=== PATIENT | female | born 1995 | race Caucasian/White ===

== ENCOUNTER → 2018-01-10 16:38 | Outpatient (CLI) | payer OTHER, SELFPAY ==
[2018-01-10 17:43] LABS: Hematocrit 35.5 % (37-47); Hemoglobin 11.9 g/dl (12.0-15.0); Mean Corp Hgb Conc 33.5 g/gl (32-36); Mean Corpuscular Volume 83.5 fL (81-99); Mean Platelet Vol. 11.1 fl (6.2-12.0); Platelet Count 218 K/mm3 (150-450); RBC Distribution Width CV 12.9 % (11.6-14.6); RBC Distribution Width SD 38.5 fl (35.1-43.9); Red Blood Count 4.25 M/mm3 (4.2-5.4); White Blood Count 9.4 K/mm3 (4.4-11.0)
[2018-01-10 17:55] LABS: Scan Indicated on CBC? Y/N NO
[2018-01-10 18:07] LABS: BUN 9 mg/dL (7-18); Creatinine, Serum 0.56 mg/dL (0.55-1.02); Glucose 111 mg/dL (74-106)
[2018-01-10 18:08] LABS: ALB/GLOB Ratio 0.7 RATIO (0.9-2.4); AST(SGOT) 13 U/L (15-37); Alanine Aminotransfer ALT/SGPT 15 U/L (13-56); Albumin, Serum 2.7 g/dL (3.2-5.0); Alkaline Phosphatase 80 U/L (45-117); Anion Gap 10 (5-15); BUN/Creat Ratio 16.1 RATIO (10-20); Calcium,Total 8.2 mg/dL (8.5-10.1); Chloride 106 mmol/L (98-107); EST Glomerular Filtration Rate 145 mL/min (>60); Est Glom Filt Rate - Afr Amer 176 mL/min (>60); Globulin 3.7 g/dL (2.2-4.2); Potassium 3.3 mmol/L (3.5-5.1); Protein, Total 6.4 g/dL (6.4-8.2); Sodium Level 138 mmol/L (136-145); Uric Acid 3.9 mg/dL (2.6-6.0)
== END ==
PROVIDERS: Visit Provider Obstetrics & Gynecology
DX: O13.3 Gestational [pregnancy-induced] hypertension without significant proteinuria, third trimester (principal); Z3A.00 Weeks of gestation of pregnancy not specified
CPT/HCPCS: 36415; 80053; 82570; 84156; 84550; 85027

== ENCOUNTER → 2018-01-16 17:10 | Outpatient (CLI) | payer OTHER, SELFPAY ==
[2018-01-16 17:51] LABS: Hematocrit 34.8 % (37-47); Hemoglobin 11.7 g/dl (12.0-15.0); Mean Corp Hgb Conc 33.6 g/gl (32-36); Mean Corpuscular Hgb 27.9 pg (27.0-32.0); Mean Corpuscular Volume 83.1 fL (81-99); Mean Platelet Vol. 10.7 fl (6.2-12.0); Platelet Count 248 K/mm3 (150-450); RBC Distribution Width CV 12.6 % (11.6-14.6); RBC Distribution Width SD 37.7 fl (35.1-43.9); Red Blood Count 4.19 M/mm3 (4.2-5.4); White Blood Count 12.9 K/mm3 (4.4-11.0)
[2018-01-16 18:14] LABS: Scan Indicated on CBC? Y/N NO
[2018-01-16 18:44] LABS: ALB/GLOB Ratio 0.7 RATIO (0.9-2.4); AST(SGOT) 17 U/L (15-37); Alanine Aminotransfer ALT/SGPT 18 U/L (13-56); Albumin, Serum 2.7 g/dL (3.2-5.0); Alkaline Phosphatase 90 U/L (45-117); Anion Gap 9 (5-15); BUN 12 mg/dL (7-18); BUN/Creat Ratio 22.1 RATIO (10-20); Calcium,Total 8.6 mg/dL (8.5-10.1); Chloride 104 mmol/L (98-107); Creatinine, Serum 0.54 mg/dL (0.55-1.02); EST Glomerular Filtration Rate 150 mL/min (>60); Est Glom Filt Rate - Afr Amer 181 mL/min (>60); Globulin 3.7 g/dL (2.2-4.2); Glucose 99 mg/dL (74-106); Potassium 3.4 mmol/L (3.5-5.1); Protein, Total 6.4 g/dL (6.4-8.2); Sodium Level 136 mmol/L (136-145); Uric Acid 3.4 mg/dL (2.6-6.0)
== END ==
PROVIDERS: Family Provider Family Medicine; PCP Family Medicine; Visit Provider Obstetrics & Gynecology
DX: O16.3 Unspecified maternal hypertension, third trimester (principal); Z3A.00 Weeks of gestation of pregnancy not specified
CPT/HCPCS: 36415; 80053; 84550; 85027

== ENCOUNTER → 2018-01-17 19:50 | Outpatient (CLI) | payer OTHER, SELFPAY ==
[2018-01-17 21:24] LABS: 24 Hour Urine Protein 197.6 mg/24HR (<150 MG/24HR); 24HR. UA Prot. Total Volume 1900 mL; Urine Protein (24 Hour) 10.4 mg/dL (<11.9)
== END ==
PROVIDERS: Family Provider Family Medicine; PCP Family Medicine; Visit Provider Obstetrics & Gynecology
DX: O16.3 Unspecified maternal hypertension, third trimester (principal); Z3A.00 Weeks of gestation of pregnancy not specified
CPT/HCPCS: 84156

== ENCOUNTER → 2018-01-24 17:59 | Outpatient (CLI) | payer OTHER, SELFPAY ==
[2018-01-24 20:40] LABS: Group B Strep DNA By PCR POSITIVE (Negative); Probe Check PASS
== END ==
PROVIDERS: Family Provider Family Medicine; PCP Family Medicine; Visit Provider Obstetrics & Gynecology
DX: Z36.85 Encounter for antenatal screening for Streptococcus B (principal)
CPT/HCPCS: 87653

== ENCOUNTER 2018-01-28 16:05 | Outpatient (CLI) | payer OTHER, SELFPAY ==
[2018-01-28 16:28] VITALS: BMI 26.2
[2018-01-28 18:37] LABS: Bacteria 0 SEEN /hpf (None Seen); Mucous, Urine 0 SEEN /hpf (<or=2+)
[2018-01-28 18:41] LABS: Color, Urine Yellow (Yellow); Glucose, Dipstick Normal (Normal); Ketone-Dipstick Negative (Negative); Leukocyte Esterase-Dipstick 100 /ul (Negative); Nitrite-Dipstick Negative (Negative); Occult Blood-Urine 10 /ul (Negative); Protein-Dipstick Negative (Negative); Urine Bilirubin Dipstick Negative (Negative); Urine Clarity Clear (Clear); Urine Urobilinogen Normal (Normal)
[2018-01-28 18:53] LABS: Red Blood Cells-Urine 0-5 SEEN /hpf (0-5); White Blood Cells 0-5 SEEN /hpf (0-5)
[2018-01-28 18:54] LABS: Squamous Epithelial Cells - UA 0-5 SEEN /hpf (5-10)
--- NOTE | 2018-01-29 09:01 | OB.TRI.NOTE ---
History of Present Illness Date of Service: 01/28/18 Was patient seen by the physician?: No Reason For Visit: RULE OUT LABOR Date of Service: 01/28/18 Final GIACOMO Source: US <20 weeks Gestational age: 35+ weeks History of Present Illness: 35+ week intrauterine presents with contractions and low back pain. She is also complaining of discomfort after she voids. Home Medications Medication Instructions Recorded Vits [Prenatabs FA ] 1 tablet PO DAILY 07/19/15 Allergies No Known Allergies Allergy (Verified 07/19/15 08:36) Physical Exam Cervix Dilation (cm): 3 Station: -2 Effacement (%): 50 - unchanged vs office NST - FHR Rate Baby A NST Reactive:: Yes Impression/Plan 35+ week intrauterine with transient contractions. Urinalysis was negative. Reactive nonstress test. Cervix did not change after monitoring on labor and delivery. Patient was released to home and instructed to call if contractions became more regular or more progressive. Patient called after being discharged home still complaining of discomfort after voiding; prescriptions for Macrobid 100 mg twice daily for 7 days and Pyridium 200 mg 3 times daily for 3 days was sent to [facility] in [place]. She was instructed to call with increasing contractions or evidence of labor.
--- NOTE | 2018-01-29 09:06 | OB.TRI.HP_ITS ---
History of Present Illness Date of Service: 01/28/18 Was patient seen by the physician?: No Reason For Visit: RULE OUT LABOR Date of Service: 01/28/18 Final GIACOMO Source: US <20 weeks Gestational age: 35+ weeks History of Present Illness: 35+ week intrauterine presents with contractions and low back pain. She is also complaining of discomfort after she voids. Home Medications Medication Instructions Recorded Vits [Prenatabs FA ] 1 tablet PO DAILY 07/19/15 Allergies No Known Allergies Allergy (Verified 07/19/15 08:36) Physical Exam Cervix Dilation (cm): 3 Station: -2 Effacement (%): 50 - unchanged vs office NST - FHR Rate Baby A NST Reactive:: Yes Impression/Plan 35+ week intrauterine with transient contractions. Urinalysis was negative. Reactive nonstress test. Cervix did not change after monitoring on labor and delivery. Patient was released to home and instructed to call if contractions became more regular or more progressive. Patient called after being discharged home still complaining of discomfort after voiding ; prescriptions for Macrobid 100 mg twice daily for 7 days and Pyridium 200 mg 3 times daily for 3 days was sent to [facility] in [place]. She was instructed to call with increasing contractions or evidence of labor.
== END 2018-01-28 18:20 | disposition home or self-care (01) ==
LOC: WPOUT 16:16 → WP 16:17
PROVIDERS: Family Provider Family Medicine; PCP Family Medicine; Visit Provider Obstetrics & Gynecology
DX: O26.893 Other specified pregnancy related conditions, third trimester (principal); N85.8 Other specified noninflammatory disorders of uterus; M54.5 Low back pain; Z3A.35 35 weeks gestation of pregnancy
CPT/HCPCS: 59025; 59050; 81001; 99218; G0378

== ENCOUNTER 2018-02-01 18:56 | Inpatient (IN) | payer OTHER, SELFPAY ==
[2018-02-01 19:05] VITALS: BMI 25.7
[2018-02-01] MEDS: Lactated Ringers 1,000 ML 50 ML IV ×2 (20:03→20:57)
[2018-02-01] MEDS: Betamethasone/Betamethasone 30 MG/5 ML Vial 12 MG IM (20:05)
[2018-02-01 20:31] LABS: Hematocrit 38.4 % (37-47); Hemoglobin 12.5 g/dl (12.0-15.0); Mean Corp Hgb Conc 32.6 g/gl (32-36); Mean Corpuscular Volume 82.9 fL (81-99); Mean Platelet Vol. 10.3 fl (6.2-12.0); Platelet Count 229 K/mm3 (150-450); RBC Distribution Width CV 13.2 % (11.6-14.6); RBC Distribution Width SD 39.5 fl (35.1-43.9); Red Blood Count 4.63 M/mm3 (4.2-5.4); White Blood Count 9.9 K/mm3 (4.4-11.0)
[2018-02-01 20:32] LABS: Scan Indicated on CBC? Y/N NO
[2018-02-01 20:36] LABS: International Normalized Ratio 0.9; Prothrombin Time (Protime)PT. 12.4 SECONDS (11.7-14.9)
[2018-02-01 20:37] LABS: Partial Thromboplast Time 30.9 Seconds (24.1-36.2)
[2018-02-01 20:44] LABS: AST(SGOT) 13 U/L (15-37); Alanine Aminotransfer ALT/SGPT 14 U/L (13-56); Creatinine, Serum 0.48 mg/dL (0.55-1.02); EST Glomerular Filtration Rate 170 mL/min (>60); Est Glom Filt Rate - Afr Amer 206 mL/min (>60); Estimated Creatinine Clearance 146.63 ml/min; Uric Acid 4.3 mg/dL (2.6-6.0)
[2018-02-01 21:37] LABS: Protein, Urine (Random) 20.2 mg/dL (<11.9); Protein:Creat Ratio 285 mg/g CRE (0-200)
--- NOTE | 2018-02-02 02:32 | PCM.PN.OB ---
Subjective: Relatively comfortable with epidural. Objective: Afeb BPs 140/80-90s Cat 1 FHR tracing - Physical Exam General: Alert, Oriented x3, Cooperative, No apparent distress Comment: Cervix rim/0station Weight: 140 lb 6.951 oz Body Mass Index (BMI) 25.7 Intake and Output for Last 24 Hours 01/31/18 02/01/18 02/02/18 23:59 23:59 23:59 Intake Total 1165 / 1165 640 / 640 Output Total 400 / 400 Balance 1165 / 1165 240 / 240 Laboratory Tests Past 24 Hrs 02/01/18 02/01/18 02/01/18 19:30 20:00 20:00 WBC 9.9 RBC 4.63 Hgb 12.5 Hct 38.4 MCV 82.9 MCH 27.0 MCHC 32.6 RDW 13.2 RDW Differential 39.5 Plt Count 229 MPV 10.3 PT INR APTT Creatinine Estim Creat Clear Calc Est GFR (MDRD) Af Amer Est GFR (MDRD) Non-Af Uric Acid AST ALT U Random Total Protein 20.2 H Urine Creatinine 70.80 Protein/Creatinin Ratio 285 H Blood Type A POSITIVE Antibody Screen TNP 02/01/18 02/01/18 02/01/18 20:00 20:00 20:00 WBC RBC Hgb Hct MCV MCH MCHC RDW RDW Differential Plt Count MPV PT 12.4 INR 0.9 APTT 30.9 Creatinine 0.48 L Estim Creat Clear Calc 146.63 Est GFR (MDRD) Af Amer 206 Est GFR (MDRD) Non-Af 170 Uric Acid 4.3 AST 13 L ALT 14 U Random Total Protein Urine Creatinine Protein/Creatinin Ratio Blood Type Antibody Screen NEGATIVE Assessment/Plan SROM with clear fluid. Progressing in labor expect FD soon.
--- NOTE | 2018-02-02 02:36 | DCINST_ITS ---
Discharge Diet: No Restrictions Discharge Activity: Return to Normal Activity, No Restrictions, May Drive, May Shower Return to work on:: 04/03/18 May resume sexual activity in: 4-6 weeks Call your doctor if your incision/area has: Sudden Increased Bleeding, Increased Pain/ Swelling, Increased Redness, Foul Smelling Discharge, Swelling at the incision site Call your doctor if you observe: Fever of 101 or Higher, Inability to urinate, Inability to have a bowel movement, Using more than one pad per hour, Shortness of breath, Chest pain, Calf discomfort, Uncontrolled pain Cleanse incision/area with: Soap & Water Additional Instructions: If you experience any of the following, contact your healthcare provider. * Bleeding that soaks a pad every hour for 2 hours * Fever 100.4 or higher * Unrelieved incision or abdominal pain * Swelling, redness, discharge or bleeding from your incision or episiotomy site * Your incision begins to separate * Problems urinating (including inability to urinate or burning while urinating) . * Visual changes * Severe headache * Flu-like symptoms * Pain or redness in one of both of your breasts * Pain, warmth, tenderness or swelling in your legs, especially the calf area * Frequent nausea and vomiting * Symptoms of depression or anxiety If you experience any of the following, call 911 or go to the nearest Emergency Room. * Chest pain * Problems breathing * Seizure activity * Partial or complete paralysis of a body part, slurred speech, weakness or drooping of the face, or a sudden inability to walk or hold your balance Allergies/Adverse Reactions: Allergies No Known Allergies Allergy (Verified 07/19/15 08:36) Medications to take at Discharge Vits [Prenatabs FA ] 1 tablet PO DAILY 07/19/15 Nitrofurantoin Monohyd/M-Cryst [Macrobid 100 mg Capsule] 100 mg PO BID 02/01/18 Ibuprofen [Motrin] 800 mg PO TID PRN PRN #30 tab 02/02/18 The following prescriptions were given: Ibuprofen [Motrin] 800 mg PO TID PRN PRN #30 tab PRN Reason: pain or cramping Please Follow Up With: Qiana Nicholas MD When: 6 weeks Primary Care Physician: Adriel Perry DO [Primary Care Provider] - Proposed Discharge Date: 02/04/18
[2018-02-02] MEDS: Oxytocin 30 units/NS 500 ml 30 UNITS/500 ML IV.SOLN 334 UNITS IV (02:54)
--- NOTE | 2018-02-02 03:02 | PCM.OB.VAG ---
- Problem List (1) labor Status: Acute Qualifiers: labor trimester: third trimester labor delivery status: with delivery in third trimester Fetus number: single or unspecified fetus Qualified Code(s): O60.14X0 - labor third trimester with delivery third trimester, not applicable or unspecified Vaginal Delivery Maternal Presentation: Active Labor Presents at 36w2d ega in advanced labor Amniotic Membrane Rupture Type: Spontaneous Rupture of Membrane time: 0130 Amniotic Fluid Description: Clear Final GIACOMO: 02/28/18 Final GIACOMO Source: US <20 weeks Gestational age: 36 Weeks and 2 Days Date of Procedure: 02/02/18 Pre-Operative Diagnosis: labor Post-Operative Diagnosis: same Surgery/ Procedure Performed: Spontaneous Vaginal Delivery Anesthesiologist: Juan José Maldonado Type of Anesthesia: Epidural Description of Procedure: Presented at 6 cm dilated with regular painful contractions. Celestone given due to prematurity. Ampicillin started for GBS prophylaxis. She progressed to FD then pushed for 3 minutes to deliver a live male without complication. There was a loose cord around the neck x 2. Delayed cord clamping was employed. There was an active cry shortly after delivery. Apgars of 8/9. The placenta was delivered spontaneously intact with a centrally located 3VC. The placenta was subjectively small. The uterus contracted well. The vagina, cervix and perineum were intact. Presentation: Vertex Placental Delivery Description: Spontaneous Placenta Disposition: [facility] Percentage of Placenta Abruption: 0 Cord Vessel Description: 3 Vessels Nuchal Cord Compression: With compression Cord Entanglement: None Drain: Artis to straight drain Estimated Blood Loss: 200cc A gender: Male (1 minute): 8 (5 minute): 9 Episiotomy Description: None Laceration: None Medications given after delivery: IV Pitocin Complications: None
[2018-02-02] MEDS: Oxytocin 30 units/NS 500 ml 30 UNITS/500 ML IV.SOLN 167 UNITS IV (03:24)
[2018-02-02 04:50] VITALS: BP 138/75; PULSE 95; RESP 18; TEMP 37.3; O2SAT 96
--- NOTE | 2018-02-02 07:47 | PCM.PN.BLA ---
Progress Note s/p at 36 3/7wga h/o gHTN doing well. No complaints. No sx of preeclampsia. She is nursing. No issues since delivery. Continue routine care.
--- NOTE | 2018-02-02 07:53 | NURSING ---
trimble catheter dc'd at this time
[2018-02-02 10:00] VITALS: BP 131/84; PULSE 89; RESP 18; TEMP 36.4; O2SAT 96
[2018-02-02] MEDS: Senna/Docusate Sodium 1 Tablet PO (10:15)
[2018-02-02] MEDS: Nitrofurantoin Macrocrystals 100 MG Capsule PO ×2 (10:15→22:15)
[2018-02-02] MEDS: Prenatal Vits Tablet 1 TABLET PO (10:16)
[2018-02-02 13:00] VITALS: BP 126/70; PULSE 100; RESP 20; TEMP 36.4; O2SAT 98
[2018-02-02 17:55] VITALS: BP 138/69; PULSE 93; RESP 18; TEMP 37; O2SAT 96
[2018-02-02 20:15] VITALS: BP 131/83; PULSE 84; RESP 16; TEMP 36.8; O2SAT 95
[2018-02-03 01:02] VITALS: BP 140/79; PULSE 89; RESP 16; TEMP 36.6
[2018-02-03 04:00] VITALS: BP 115/69; PULSE 74; RESP 20; TEMP 36.6; O2SAT 95
[2018-02-03 05:38] LABS: Hemoglobin 11.6 g/dl (12.0-15.0); Mean Corp Hgb Conc 33.1 g/gl (32-36); Mean Corpuscular Volume 84.3 fL (81-99); Mean Platelet Vol. 10.4 fl (6.2-12.0); Platelet Count 219 K/mm3 (150-450); RBC Distribution Width CV 13.3 % (11.6-14.6); RBC Distribution Width SD 39.8 fl (35.1-43.9); Red Blood Count 4.15 M/mm3 (4.2-5.4); White Blood Count 13.5 K/mm3 (4.4-11.0)
[2018-02-03 05:46] LABS: Scan Indicated on CBC? Y/N NO
[2018-02-03 08:00] VITALS: BP 138/94; PULSE 83; RESP 16; TEMP 36.2; O2SAT 95
--- NOTE | 2018-02-03 08:39 | PCM.PN.OB ---
Patient Problems: Active and Suspected Problems labor (Acute) Subjective: No issues overnight. Denies heavy lochia, headache, vision changes or pain. is nursing well. Objective: avss - Physical Exam General: Alert, Oriented x3, Cooperative, No apparent distress HEENT: Atraumatic, Normocephalic Lungs: Normal air movement Cardiovascular: Regular rate, Regular Rhythm Abdomen: Soft, Non Tender, Non-Distended, - - fundus firm and nontender at 4 FW under umbilicus Extremities: No edema, No Calf Tenderness Neurological: Neuro grossly intact Psych/Mental Status: Normal Affect, Appropriate Vital Signs Temp Pulse Resp BP Pulse Ox 97.2 F L 83 16 138/94 H 95 02/03/18 08:00 02/03/18 08:00 02/03/18 08:00 02/03/18 08:00 02/03/18 08:00 Oxygen Delivery Method Room Air Weight: 63.7 kg Body Mass Index (BMI) 25.7 Intake and Output for Last 24 Hours 02/01/18 02/02/18 02/03/18 23:59 23:59 23:59 Intake Total 1165 / 1165 2055 / 2055 Output Total 2900 / 2900 Balance 1165 / 1165 -845 / -845 Laboratory Tests Past 24 Hrs 02/03/18 05:30 WBC 13.5 H RBC 4.15 L Hgb 11.6 L Hct 35.0 L MCV 84.3 MCH 28.0 MCHC 33.1 RDW 13.3 RDW Differential 39.8 Plt Count 219 MPV 10.4 Assessment/Plan Active and Suspected Problems labor (Acute) 22yo PPD#2 s/p doing well. -Infant bilirubin levels pending - -Will plan for d/c later today
[2018-02-03] MEDS: Prenatal Vits Tablet 1 TABLET PO (09:13)
[2018-02-03] MEDS: Nitrofurantoin Macrocrystals 100 MG Capsule PO ×2 (09:13→22:00)
[2018-02-03 14:30] VITALS: BP 134/84; PULSE 87; RESP 18; TEMP 36.4; O2SAT 95
[2018-02-03 19:45] VITALS: BP 124/73; PULSE 88; RESP 18; TEMP 36.8
[2018-02-04 02:00] VITALS: BP 122/81; PULSE 88; RESP 16; TEMP 36.7
[2018-02-04 08:00] VITALS: BP 136/91; PULSE 70; RESP 16; TEMP 36.7; O2SAT 99
--- NOTE | 2018-02-04 09:58 | PCM.PN.OB ---
Patient Problems: Active and Suspected Problems labor (Acute) Subjective: No issues overnight. She feels well. Objective: AVSS - Physical Exam General: Alert, Oriented x3, Cooperative HEENT: Atraumatic, Normocephalic Lungs: Normal air movement Cardiovascular: Regular rate, Regular Rhythm, Normal S1, Normal S2 Abdomen: Soft, Non Tender, Non-Distended, - - Fundus firm and nontender Extremities: No edema, No Calf Tenderness Neurological: Neuro grossly intact Psych/Mental Status: Normal Affect, Appropriate, Alert and oriented to time, place, person, mood and affect Vital Signs Temp Pulse Resp BP Pulse Ox 98.1 F 70 16 136/91 H 99 02/04/18 08:00 02/04/18 08:00 02/04/18 08:00 02/04/18 08:00 02/04/18 08:00 Oxygen Delivery Method Room Air Weight: 63.7 kg Body Mass Index (BMI) 25.7 Intake and Output for Last 24 Hours 02/02/18 02/03/18 02/04/18 23:59 23:59 23:59 Intake Total 2054 Output Total 2900 / 2900 Balance -845 / -845 Assessment/Plan Active and Suspected Problems labor (Acute) 22yo PPD#2 s/p doing well. -A pos, Rub imm -Infant bilirubin levels pending - -Will plan for d/c later today
[2018-02-04] MEDS: Prenatal Vits Tablet 1 TABLET PO (10:11)
[2018-02-04] MEDS: Nitrofurantoin Macrocrystals 100 MG Capsule PO (10:11)
[2018-02-04 15:00] VITALS: BP 121/82; PULSE 69; RESP 16; TEMP 36.7; O2SAT 100
--- NOTE | 2018-02-04 15:22 | PCM.DC.SUM ---
Discharge Date and Diagnosis - Problem List Patient Problems: Active and Suspected Problems labor (Acute) Date of Admission: 02/02/18 Date of Discharge: 02/04/18 - Primary Discharge Diagnosis Active and Suspected Problems labor (Acute) Hospital Course and Treatment Consultations 02/01/18 19:03 Consult: Anesthesia Routine Comment: Reason For Exam: LABOR Operations: None Procedures: None Summary of Care Provided: The patient is a 22 year old F 2 para 1001 admitted at 36 2/7wga in active labor. She had uncomplicated vaginal delivery. Her course was unremarkable and she was discharged to home on day #2. Discharge Diet: No Restrictions Discharge Activity: Return to Normal Activity, No Restrictions, May Drive, May Shower Return to work on:: 04/03/18 May resume sexual activity in: 4-6 weeks Call your doctor if your incision/area has: Sudden Increased Bleeding, Increased Pain/ Swelling, Increased Redness, Foul Smelling Discharge, Swelling at the incision site Call your doctor if you observe: Fever of 101 or Higher, Inability to urinate, Inability to have a bowel movement, Using more than one pad per hour, Shortness of breath, Chest pain, Calf discomfort, Uncontrolled pain Cleanse incision/area with: Soap & Water Home Medications: Medications to take at Discharge Vits [Prenatabs FA ] 1 tablet PO DAILY 07/19/15 Nitrofurantoin Monohyd/M-Cryst [Macrobid 100 mg Capsule] 100 mg PO BID 02/01/18 Ibuprofen [Motrin] 800 mg PO TID PRN PRN #30 tab 02/02/18 Following Prescrptions Were Given to Patient: Ibuprofen [Motrin] 800 mg PO TID PRN PRN #30 tab PRN Reason: pain or cramping Primary Care Physician: Adriel Perry DO [Primary Care Provider] - Please Follow Up With: Qiana Nicholas MD Meaningful Use Info Meaningful Use Diagnoses (Choose all that apply): None applicable
== END 2018-02-04 15:14 | disposition home or self-care (01) | DRG 774 ==
LOC: WPOUT 18:56
PROVIDERS: Admitting Provider Obstetrics & Gynecology; Family Provider Family Medicine; PCP Family Medicine; Visit Provider Obstetrics & Gynecology
DX: O60.14X0 Preterm labor third trimester with preterm delivery third trimester, not applicable or unspecified (principal); O69.81X0 Labor and delivery complicated by cord around neck, without compression, not applicable or unspecified; O98.82 Other maternal infectious and parasitic diseases complicating childbirth; B95.1 Streptococcus, group B, as the cause of diseases classified elsewhere; Z37.0 Single live birth; Z3A.36 36 weeks gestation of pregnancy
CPT/HCPCS: 59025; 59050; 82565; 82570; 84156; 84450; 84460; 84550; 85027; 85610; 85730; 86850; 86900; 99218; J7120; G0378; J0290; J0702

== ENCOUNTER → 2019-04-12 14:56 | Outpatient (CLI) | payer BC, SELFPAY ==
[2019-04-12 17:50] LABS: Chlamydia Trachomatis by PCR Negative (Negative); Neisserai gonorrhoeae by PCR Negative (Negative); Probe Check PASS; Sample Adequacy Control PASS; Specimen Processing Control PASS
[2019-04-17 16:08] LABS: HPV Reflexed? NOT INDICATED
== END ==
PROVIDERS: Family Provider Family Medicine; PCP Family Medicine; Referring Provider Obstetrics & Gynecology; Visit Provider Obstetrics & Gynecology
DX: Z12.4 Encounter for screening for malignant neoplasm of cervix (principal); Z11.3 Encounter for screening for infections with a predominantly sexual mode of transmission; Z32.01 Encounter for pregnancy test, result positive
CPT/HCPCS: 87491; 87591; 88175; G0145

== ENCOUNTER → 2019-04-24 15:46 | Outpatient (CLI) | payer BC, SELFPAY ==
[2019-04-24 16:33] LABS: Absolute Lymphocyte Count 1.43 X10^3/ul (0.83-4.51); Absolute Neutrophil Count 6.9 X10^3/uL (2.0-7.7); Basophil# 0.02 X10^3/uL; Basophil% 0.2 % (0-1); Eosinophil# 0.02 X10^3/uL; Eosinophils% 0.2 % (0-5); Hematocrit 39.1 % (37-47); Hemoglobin 13.4 g/dl (12.0-15.0); Lymphocyte # 1.43 X10^3/ul (4.0); Lymphocyte % 16.3 % (19-41); Mean Corp Hgb Conc 34.3 g/gl (32-36); Mean Corpuscular Hgb 28.4 pg (27.0-32.0); Mean Corpuscular Volume 82.8 fL (81-99); Mean Platelet Vol. 10.9 fl (6.2-12.0); Monocyte# 0.43 X10^3/uL; Monocyte% 4.9 % (0-10); Neutrophil # 6.89 X10^3/uL (2.7-7.7); Neutrophil % 78.3 % (47-70); POSITIVE COUNT NO; POSITIVE DIFFERENTIAL NO; POSITIVE MORPHOLOGY NO; Platelet Count 237 K/mm3 (150-450); RBC Distribution Width CV 12.4 % (11.6-14.6); RBC Distribution Width SD 37.5 fl (35.1-43.9); Red Blood Count 4.72 M/mm3 (4.2-5.4); White Blood Count 8.8 K/mm3 (4.4-11.0)
[2019-04-24 16:36] LABS: Color, Urine Yellow (Yellow); Glucose, Dipstick Normal (Normal); Ketone-Dipstick Negative (Negative); Leukocyte Esterase-Dipstick Negative /ul (Negative); Nitrite-Dipstick Negative (Negative); Occult Blood-Urine Negative /ul (Negative); Protein-Dipstick Negative (Negative); Specific Gravity, Urine 1.025 (1.002-1.030); Urine Bilirubin Dipstick Negative (Negative); Urine Clarity Clear (Clear); Urine Urobilinogen Normal (Normal)
[2019-04-24 17:15] LABS: Amphetamine Urine VISTA NEGATIVE (<1000 ng/mL); Barbiturate Urine VISTA NEGATIVE (< 200 ng/mL); Benzodiazepine Urine VISTA NEGATIVE (< 200 ng/mL); Cocaine Urine VISTA NEGATIVE (< 300 ng/mL); Ecstacy Urine VISTA NEGATIVE (< 500 ng/mL); Methadone Urine VISTA NEGATIVE (< 300 ng/mL); PCP Urine VISTA NEGATIVE (< 25 ng/mL); THC Urine VISTA NEGATIVE (< 50 ng/mL); Vista UDS pH Range 5
[2019-04-24 18:00] LABS: HIV - WCH Non-Reactive (Nonreactive); Rubella IgG 169.8 IU/mL
[2019-04-26 16:47] LABS: HEPATITIS B SURFACE AG Negative (Negative); Hep C Antibodies <0.1 s/co ratio (0.0-0.9)
[2019-04-27 01:45] LABS: Prenatal RPR NONREACTIVE (NONREACTIVE)
== END ==
PROVIDERS: Visit Provider Obstetrics & Gynecology
DX: Z34.83 Encounter for supervision of other normal pregnancy, third trimester (principal)
CPT/HCPCS: 36415; 80307; 81002; 84443; 85025; 86703; 86762; 86803; 87340

== ENCOUNTER → 2019-08-06 14:01 | Outpatient (CLI) | payer BC, SELFPAY ==
[2019-08-06 14:48] LABS: AST(SGOT) 11 U/L (15-37); Alanine Aminotransfer ALT/SGPT 12 U/L (13-56); Albumin, Serum 2.9 g/dL (3.2-5.0); Alkaline Phosphatase 55 U/L (45-117); Bilirubin, Direct 0.13 mg/dL (0.00-0.30); Globulin 3.6 g/dL (2.2-4.2); Protein, Total 6.5 g/dL (6.4-8.2)
== END ==
PROVIDERS: Visit Provider Obstetrics & Gynecology
DX: O26.892 Other specified pregnancy related conditions, second trimester (principal); L29.9 Pruritus, unspecified; Z3A.00 Weeks of gestation of pregnancy not specified
CPT/HCPCS: 36415; 80076

== ENCOUNTER → 2019-09-03 13:47 | Outpatient (CLI) | payer BC, SELFPAY ==
[2019-09-03 15:50] LABS: Hematocrit 37.4 % (37-47); Hemoglobin 12.4 g/dL (12.0-15.0); Mean Corp Hgb Conc 33.2 g/dL (32-36); Mean Corpuscular Hgb 28.1 pg (27.0-32.0); Mean Corpuscular Volume 84.6 fL (81-99); Mean Platelet Vol. 10.7 fl (6.2-12.0); Platelet Count 236 K/mm3 (150-450); RBC Distribution Width CV 12.2 % (11.6-14.6); RBC Distribution Width SD 37.3 fl (35.1-43.9); Red Blood Count 4.42 M/mm3 (4.2-5.4); White Blood Count 9.4 K/mm3 (4.4-11.0)
[2019-09-03 16:00] LABS: Glucose Challenge Gest 1H 50g 79 mg/dL (70-140)
== END ==
PROVIDERS: Visit Provider Obstetrics & Gynecology
DX: Z34.83 Encounter for supervision of other normal pregnancy, third trimester (principal)
CPT/HCPCS: 36415; 82950; 85027

== ENCOUNTER 2019-10-08 22:45 | Outpatient (CLI) | payer BC, SELFPAY ==
[2019-10-08 23:41] VITALS: BMI 24.9
[2019-10-09 00:28] LABS: Mucous, Urine 0 SEEN /hpf (<or=2+); Red Blood Cells-Urine 0 SEEN /hpf (0-5); White Blood Cells 0 SEEN /hpf (0-5)
[2019-10-09] MEDS: Terbutaline 1 MG/ML Vial 0.25 MG SC (00:33)
[2019-10-09 00:34] LABS: Hematocrit 34.1 % (37-47); Hemoglobin 11.1 g/dL (12.0-15.0); Mean Corp Hgb Conc 32.6 g/dL (32-36); Mean Corpuscular Hgb 26.7 pg (27.0-32.0); Mean Platelet Vol. 10.7 fl (6.2-12.0); Platelet Count 239 K/mm3 (150-450); RBC Distribution Width CV 12.3 % (11.6-14.6); RBC Distribution Width SD 36.5 fl (35.1-43.9); Red Blood Count 4.16 M/mm3 (4.2-5.4); White Blood Count 10.6 K/mm3 (4.4-11.0)
[2019-10-09] MEDS: Betamethasone/Betamethasone 30 MG/5 ML Vial 12 MG IM (00:35)
[2019-10-09 00:39] LABS: Color, Urine Straw (Yellow); Glucose, Dipstick Normal (Normal); Ketone-Dipstick Negative (Negative); Leukocyte Esterase-Dipstick Negative /ul (Negative); Nitrite-Dipstick Negative (Negative); Occult Blood-Urine Negative /ul (Negative); Protein-Dipstick Negative (Negative); Specific Gravity, Urine 1.015 (1.002-1.030); Urine Bilirubin Dipstick Negative (Negative); Urine Clarity Sl. Cloudy (Clear); Urine Urobilinogen Normal (Normal); Urine pH 6.5 (5.0 - 8.0)
[2019-10-09 00:41] LABS: Prothrombin Time (Protime)PT. 13.3 SECONDS (11.7-14.9)
[2019-10-09 00:42] LABS: AST(SGOT) 14 U/L (15-37); Alanine Aminotransfer ALT/SGPT 15 U/L (13-56); Creatinine, Serum 0.43 mg/dL (0.55-1.02); EST Glomerular Filtration Rate 194 mL/min (>60); Est Glom Filt Rate - Afr Amer 235 mL/min (>60); Estimated Creatinine Clearance 160.93 ml/min; Partial Thromboplast Time 29.5 Seconds (24.1-36.2); Uric Acid 3.2 mg/dL (2.6-6.0)
[2019-10-09 00:43] LABS: Protein, Urine (Random) 9.6 mg/dL (<11.9); Protein:Creat Ratio 267 mg/g CRE (0-200)
[2019-10-09 00:54] LABS: Amorphous Sediment 1+; Bacteria RARE /hpf (None Seen); Squamous Epithelial Cells - UA 0-5 SEEN /hpf (5-10)
[2019-10-09] MEDS: Lactated Ringers 1,000 ML 200 ML IV ×3 (01:41→06:01)
--- NOTE | 2019-10-09 08:12 | PCM.HP.OB ---
- Problem List (1) labor Status: Acute Qualifiers: labor trimester: third trimester labor delivery status: without delivery Qualified Code(s): O60.03 - labor without delivery, third trimester History Date of Admission: 10/09/19 Final GIACOMO: 11/22/19 Final GIACOMO Source: US <20 weeks Gestational age: 33 Weeks and 5 Days History of this : This is a 24 year-old, G [], P [], at 33 weeks gestational age. Allergies nitrofurantoin [From Macrobid] Allergy (Verified 10/09/19 00:29) Rash Home Medications: Home Medications Vits [Prenatabs FA ] 1 tablet PO DAILY 07/19/15 Progesterone 250 mg IM 10/09/19 Smoking Status: Never smoker Alcohol: None Number of Fetus(es): 1 NST - FHR Rate Baby A Baseline: 130 Variability:: Moderate Accelerations:: 15 x 15 Decelerations:: None NST Reactive:: Yes FHR Category:: Category I Uterine Activity:: irregular UC on arrival, uterine irritability History Past Pregnancies: Past Pregnancies Delivery Date Name GA/ Weeks Outcome Route Wt Infant Sex Labor Length Anesthesia Delivery Location Provider FOB 36 vag 5.8 F 6H 07/19/15 37 vag 5.7 M 4H Labs: Mom's Labs & Results 10/09/19 10/09/19 10/09/19 00:00 00:00 00:00 WBC 10.6 RBC 4.16 L Hgb 11.1 L Hct 34.1 L MCV 82.0 MCH 26.7 L MCHC 32.6 RDW Std Deviation 36.5 RDW Coeff of Woody 12.3 Plt Count 239 MPV 10.7 PT 13.3 INR 1.0 APTT 29.5 Creatinine Estim Creat Clear Calc Est GFR (MDRD) Af Amer Est GFR (MDRD) Non-Af Uric Acid AST ALT Urine Color Straw Urine Clarity Sl. Cloudy Urine pH 6.5 Ur Specific [place] 1.015 Urine Protein Negative Urine Glucose (UA) Normal Urine Ketones Negative Urine Occult Blood Negative Urine Nitrite Negative Urine Bilirubin Negative Urine Urobilinogen Normal Ur Leukocyte Esterase Negative Urine RBC 0 SEEN Urine WBC 0 SEEN Ur Squamous Epith Cells 0-5 SEEN Amorphous Sediment 1+ Urine Bacteria RARE Urine Mucus 0 SEEN U Random Total Protein Urine Creatinine Protein/Creatinin Ratio 10/09/19 10/09/19 00:00 00:00 WBC RBC Hgb Hct MCV MCH MCHC RDW Std Deviation RDW Coeff of Woody Plt Count MPV PT INR APTT Creatinine 0.43 L Estim Creat Clear Calc 160.93 Est GFR (MDRD) Af Amer 235 Est GFR (MDRD) Non-Af 194 Uric Acid 3.2 AST 14 L ALT 15 Urine Color Urine Clarity Urine pH Ur Specific [place] Urine Protein Urine Glucose (UA) Urine Ketones Urine Occult Blood Urine Nitrite Urine Bilirubin Urine Urobilinogen Ur Leukocyte Esterase Urine RBC Urine WBC Ur Squamous Epith Cells Amorphous Sediment Urine Bacteria Urine Mucus U Random Total Protein 9.6 Urine Creatinine 36.00 Protein/Creatinin Ratio 267 H Course Did the patient receive Yes care? Labs Blood Type: A RH: POSITIVE RPR/VDRL/Syphilis Nonreactive Rubella status Immune HbSAg Negative Date Done: 04/24/19 Chlamydia Negative Gonorrhea Negative HIV/AIDS Non-Reactive Group B Strep: Not Done Current Obstetrical History Gestational Diabetes No Incompetent Cervix No Infertility No IUGR No Macrosomia No Hypertension/Pre-eclampsia No Placenta Previa/Abruption No PTL/PROM No Uterine anomaly No Oligohydramnios No Polyhydramnios No Multiple gestation No Past Medical History Asthma No Diabetes No Hypertension No Heart disease No Mitral valve prolapse No Neurologic/Seizure disorder/ No Migraines Kidney disease No Liver disease No Varicosities No Clotting disorders/Hx of DVT No Thyroid Dysfunction No Other medical diseases No Psychiatric disorders No Major trauma No Abnormal PAP smear No Sleep apnea No Mammogram in the last 2 years No Social History Marital Status: Alleged father Gurvinder [place] Hx Smoking No Smoking Status Never smoker Expected Delivery Method: Spontaneous Vaginal Describe any other labor & delivery plans:: rule out labor Number of Visits: 10 Review of Systems Constitutional: Denies: Chills, Fever, Weight Change HEENT: Denies: Head Aches, Sinus Congestion, Sinus Drainage Cardiovascular: Denies: Chest Pain, Palpitations Respiratory: Denies: Cough, Shortness of breath at rest, Sputum production Gastrointestinal: Denies: Abdominal Pain, Nausea, Vomiting Genitourinary: Denies: Dysuria Musculoskeletal: Denies: Joint Pain, Joint Tenderness Skin: Denies: Rash, Wounds Neurological: Denies: Numbness, Tingling, Focal weakness Psychiatric: Denies: Anxiety, Depression, Homicidal Ideations, Suicidal Ideations Hematologic/ Lymphatic: Denies: Easy Bruising, Easy Bleeding Physical Exam General: Alert, Oriented x3, No apparent distress HEENT: Atraumatic, Normocephalic. Negative for: Thyromegaly, Lymphadenopathy Cardiovascular: Regular rate, Regular Rhythm Lungs: Clear to auscultation Abdomen: Bowel Sounds Present, Gravid Neurological: Deep Tendon Reflexes 2+/4 and Symmetrical, Neuro grossly intact RADIOLOGIST PHYSICIAN: Normal external genitalia. Negative for: Vulvar lesions Estimated gestational size: Appropriate for gestational size Presentation: Cephalic Cervix Dilation (cm): 4 Station: -2 Effacement (%): 50 Assessment/Plan All Active Problems labor (Acute) rule out labor (Acute) This is a 24 year-old, G [3], P [2], at 33 weeks gestational age here to rule out labor with uterine contractions. Hx of labor at 36 weeks, currently receiving 17p injections in OB office. Observed for 8 hours. Betamethasone received, terbutaline received, fluid bolus and IV fluids. Contractions have stopped with uterine irritability seen on monitor. SVE /-2 unchanged dilation Discussed case with Dr. Dukes attending MD. Decision to send Renetta home. Will come back at 1999 for second dose of Betamethasone. Educated on coming back if ROM or regular UC begin again. To stay hydrated and follow up in OB office at routine PNV.
== END 2019-10-09 08:20 | disposition home or self-care (01) ==
LOC: WPOUT 23:23 → WP 23:23
PROVIDERS: Referring Provider Obstetrics & Gynecology; Visit Provider Obstetrics & Gynecology
DX: O60.03 Preterm labor without delivery, third trimester (principal); Z3A.33 33 weeks gestation of pregnancy; Z88.1 Allergy status to other antibiotic agents
CPT/HCPCS: 36415; 59025; 59050; 81001; 82565; 82570; 84156; 84450; 84460; 84550; 85027; 85610; 85730; 94760; 96372; 99218; J7120; G0378; J0702

== ENCOUNTER 2019-10-09 20:02 | Outpatient (CLI) | payer BC, SELFPAY ==
[2019-10-08 23:41] VITALS: BMI 24.9
[2019-10-09] MEDS: Betamethasone/Betamethasone 30 MG/5 ML Vial 12 MG IM (20:27)
--- NOTE | 2019-10-19 08:56 | PCM.PN.BLA ---
Progress Note Returns for second shot in prevention of pre-term labor.
== END 2019-10-09 20:32 | disposition home or self-care (01) ==
LOC: WPOUT 20:09 → WP 20:09
PROVIDERS: Visit Provider Obstetrics & Gynecology
DX: O48.0 Post-term pregnancy (principal)
CPT/HCPCS: 96372; 99218; G0378; J0702

== ENCOUNTER → 2019-10-18 12:18 | Outpatient (CLI) | payer BC, SELFPAY ==
[2019-10-08 23:41] VITALS: BMI 24.9
[2019-10-18 12:43] LABS: Hematocrit 36.3 % (37-47); Hemoglobin 11.8 g/dL (12.0-15.0); Mean Corp Hgb Conc 32.5 g/dL (32-36); Mean Corpuscular Hgb 26.3 pg (27.0-32.0); Mean Corpuscular Volume 80.8 fL (81-99); Mean Platelet Vol. 10.6 fl (6.2-12.0); Platelet Count 265 K/mm3 (150-450); RBC Distribution Width CV 12.5 % (11.6-14.6); RBC Distribution Width SD 36.4 fl (35.1-43.9); Red Blood Count 4.49 M/mm3 (4.2-5.4); White Blood Count 10.9 K/mm3 (4.4-11.0)
[2019-10-18 13:19] LABS: ALB/GLOB Ratio 0.7 RATIO (0.9-2.4); AST(SGOT) 23 U/L (15-37); Alanine Aminotransfer ALT/SGPT 24 U/L (13-56); Albumin, Serum 2.8 g/dL (3.2-5.0); Alkaline Phosphatase 89 U/L (45-117); Anion Gap 9 (5-15); BUN 11 mg/dL (7-18); BUN/Creat Ratio 24.4 RATIO (10-20); Calcium,Total 9.5 mg/dL (8.5-10.1); Chloride 107 mmol/L (98-107); Creatinine, Serum 0.45 mg/dL (0.55-1.02); EST Glomerular Filtration Rate 183 mL/min (>60); Est Glom Filt Rate - Afr Amer 221 mL/min (>60); Globulin 4.1 g/dL (2.2-4.2); Glucose 82 mg/dL (74-106); Potassium 3.7 mmol/L (3.5-5.1); Protein, Total 6.9 g/dL (6.4-8.2); Sodium Level 139 mmol/L (136-145); Uric Acid 3.5 mg/dL (2.6-6.0)
== END ==
PROVIDERS: Referring Provider Obstetrics & Gynecology; Visit Provider Obstetrics & Gynecology
DX: O13.3 Gestational [pregnancy-induced] hypertension without significant proteinuria, third trimester (principal); Z3A.00 Weeks of gestation of pregnancy not specified
CPT/HCPCS: 36415; 80053; 84550; 85027

== ENCOUNTER → 2019-10-19 16:00 | Outpatient (CLI) | payer BC, SELFPAY ==
[2019-10-08 23:41] VITALS: BMI 24.9
[2019-10-19 17:08] LABS: 24HR. UA Prot. Total Volume 1675 mL
[2019-10-19 17:09] LABS: 24 Hour Urine Protein 229.5 mg/24HR (<150 MG/24HR); Creat.Clear Total Volume 1675 mL; Creatinine Urine 87.5 mg/dL (NO RANGE EST.); Urine Protein (24 Hour) 13.7 mg/dL (<11.9)
[2019-10-19 17:12] LABS: Creatinine Clearance 203 ml/min (100-200); Creatinine Serum Creat 0.5 mg/dL (0.6-1.0); EST Glomerular Filtration Rate 163 mL/min (>60); Est Glom Filt Rate - Afr Amer 163 mL/min (>60)
== END ==
PROVIDERS: Visit Provider Obstetrics & Gynecology
DX: O13.3 Gestational [pregnancy-induced] hypertension without significant proteinuria, third trimester (principal); Z3A.00 Weeks of gestation of pregnancy not specified
CPT/HCPCS: 81050; 82575; 84156

== ENCOUNTER → 2019-10-29 17:53 | Outpatient (CLI) | payer BC, SELFPAY ==
[2019-10-08 23:41] VITALS: BMI 24.9
== END ==
PROVIDERS: Referring Provider Obstetrics & Gynecology; Visit Provider Obstetrics & Gynecology
DX: Z36.85 Encounter for antenatal screening for Streptococcus B (principal)
CPT/HCPCS: 87081

== ENCOUNTER 2019-11-02 18:25 | Inpatient (IN) | payer BC, SELFPAY ==
[2019-11-02] MEDS: Lactated Ringers 1,000 ML 50 ML IV (19:00)
[2019-11-02 19:06] VITALS: BMI 26.7
--- NOTE | 2019-11-02 19:32 | PCM.HP.OB ---
- Problem List (1) 37 weeks gestation of Status: Acute History Date of Admission: 10/09/19 Final GIACOMO: 11/22/19 Final GIACOMO Source: US <20 weeks Gestational age: 37 Weeks and 2 Days History of this : This is a 24 year-old, G [3], P [2], at 37 weeks gestational age. Allergies nitrofurantoin [From Macrobid] Allergy (Verified 10/09/19 00:29) Rash Home Medications: Home Medications Vits [Prenatabs FA ] 1 tablet PO DAILY 07/19/15 Progesterone 250 mg IM QWEEK 10/09/19 Smoking Status: Never smoker Alcohol: None Number of Fetus(es): 1 NST - FHR Rate Baby A Baseline: 145 Variability:: Moderate Accelerations:: 15 x 15 Decelerations:: None NST Reactive:: Yes FHR Category:: Category I Uterine Activity:: U 2-5 minutes History Past Pregnancies: Past Pregnancies Delivery Date Name GA/ Weeks Outcome Route Wt Sex Labor Length Anesthesia Delivery Location Provider FOB Labs: Mom's Problem List Problem Status Onset Code 37 weeks gestation of Acute [id number].[id number] Mom's Labs & Results 11/02/19 11/02/19 11/02/19 19:00 19:00 19:00 WBC 11.2 H RBC 4.42 Hgb 11.4 L Hct 35.0 L MCV 79.2 L MCH 25.8 L MCHC 32.6 RDW Std Deviation 37.4 RDW Coeff of Woody 13.2 Plt Count 252 MPV 11.1 Immature Gran % (Auto) 0.500 Neut % (Auto) 77.1 H Lymph % (Auto) 15.1 L [place] % (Auto) 6.8 Eos % (Auto) 0.2 Baso % (Auto) 0.3 Absolute Neuts (auto) 8.6 H Absolute Lymphs (auto) 1.69 Nucleated RBC % 0 PT 13.4 INR 1.0 APTT 30.9 Creatinine Estim Creat Clear Calc Est GFR (MDRD) Af Amer Est GFR (MDRD) Non-Af Uric Acid AST ALT U Random Total Protein Urine Creatinine Protein/Creatinin Ratio Blood Type A POSITIVE Antibody Screen TNP 11/02/19 11/02/19 11/02/19 19:00 19:00 20:00 WBC RBC Hgb Hct MCV MCH MCHC RDW Std Deviation RDW Coeff of Woody Plt Count MPV Immature Gran % (Auto) Neut % (Auto) Lymph % (Auto) [place] % (Auto) Eos % (Auto) Baso % (Auto) Absolute Neuts (auto) Absolute Lymphs (auto) Nucleated RBC % PT INR APTT Creatinine 0.50 L Estim Creat Clear Calc 132.05 Est GFR (MDRD) Af Amer 196 Est GFR (MDRD) Non-Af 162 Uric Acid 4.0 AST 14 L ALT 16 U Random Total Protein 32.2 H Urine Creatinine 148.00 Protein/Creatinin Ratio 218 H Blood Type Antibody Screen NEGATIVE Course Did the patient receive Yes care? Labs Blood Type: A RH: POSITIVE RPR/VDRL/Syphilis Nonreactive Rubella status Immune HbSAg Negative Date Done: 04/24/19 Chlamydia Negative Gonorrhea Negative HIV/AIDS Non-Reactive Group B Strep: Negative Current Obstetrical History Gestational Diabetes No Incompetent Cervix No Infertility No IUGR No Macrosomia No Hypertension/Pre-eclampsia Yes Placenta Previa/Abruption No PTL/PROM No Uterine anomaly No Oligohydramnios No Polyhydramnios No Multiple gestation No Past Medical History Asthma No Diabetes No Hypertension No Heart disease No Mitral valve prolapse No Neurologic/Seizure disorder/ No Migraines Kidney disease No Liver disease No Varicosities No Clotting disorders/Hx of DVT No Thyroid Dysfunction No Other medical diseases No Psychiatric disorders No Major trauma No Abnormal PAP smear No Sleep apnea No Mammogram in the last 2 years No Medications Taken During Dose/Freq.: [Progesterone] q week Last Date/Time of Medication 36 weeks Taken: [Progesterone] Reason for taking medication [ once a from week 20 weeks-36 weeks Progesterone] Social History Marital Status: Alleged father Gurvinder Hx Smoking No Smoking Status Never smoker Expected Delivery Method: Spontaneous Vaginal Number of Visits: 13 Review of Systems Constitutional: Denies: Chills, Fever, Weight Change HEENT: Denies: Head Aches, Sinus Congestion, Sinus Drainage Cardiovascular: Denies: Chest Pain, Palpitations Respiratory: Denies: Cough, Shortness of breath at rest, Sputum production Gastrointestinal: Denies: Abdominal Pain, Nausea, Vomiting Genitourinary: Denies: Dysuria Musculoskeletal: Denies: Joint Pain, Joint Tenderness Skin: Denies: Rash, Wounds Neurological: Denies: Numbness, Tingling, Focal weakness Psychiatric: Denies: Anxiety, Depression, Homicidal Ideations, Suicidal Ideations Hematologic/ Lymphatic: Denies: Easy Bruising, Easy Bleeding Physical Exam General: Alert, Oriented x3, No apparent distress HEENT: Atraumatic, Normocephalic. Negative for: Thyromegaly, Lymphadenopathy Cardiovascular: Regular rate, Regular Rhythm Lungs: Clear to auscultation Abdomen: Bowel Sounds Present, Gravid Neurological: Deep Tendon Reflexes 2+/4 and Symmetrical, Neuro grossly intact FARM SERVICE CONSULTANT: Normal external genitalia. Negative for: Vulvar lesions Estimated gestational size: Appropriate for gestational size Presentation: Cephalic Cervix Dilation (cm): 6 Station: -2 Effacement (%): 80 Assessment/Plan All Active Problems labor (Acute) rule out labor (Acute) 37 weeks gestation of (Acute) This is a 24 year-old, G [3], P [2], at 37.1 weeks gestational age. Hx of rapid labors being 6 hours and 4 hours. Reports contractions started at 1545 and about every 5 minutes. NST Category 1, Baseline 145, + accels, - decels, moderate variability, UC 2-5 minutes SVE report per RN 6/80/-2 with a bulging bag Plan for a spontaneous vaginal delivery Discussed POC with attending Dr. Nicholas who will be resuming care
[2019-11-02 19:39] LABS: Absolute Lymphocyte Count 1.69 X10^3/uL (0.83-4.51); Absolute Neutrophil Count 8.6 X10^3/uL (2.0-7.7); Basophil# 0.03 X10^3/uL; Basophil% 0.3 % (0-1); Eosinophil# 0.02 X10^3/uL; Eosinophils% 0.2 % (0-5); Hemoglobin 11.4 g/dL (12.0-15.0); Lymphocyte # 1.69 X10^3/ul (4.0); Lymphocyte % 15.1 % (19-41); Mean Corp Hgb Conc 32.6 g/dL (32-36); Mean Corpuscular Hgb 25.8 pg (27.0-32.0); Mean Corpuscular Volume 79.2 fL (81-99); Mean Platelet Vol. 11.1 fl (6.2-12.0); Monocyte# 0.76 X10^3/uL; Monocyte% 6.8 % (0-10); NRBC Flagged by Analyzer 0 % (0-5); Neutrophil # 8.63 X10^3/uL (2.7-7.7); Neutrophil % 77.1 % (47-70); Platelet Count 252 K/mm3 (150-450); RBC Distribution Width CV 13.2 % (11.6-14.6); RBC Distribution Width SD 37.4 fl (35.1-43.9); Red Blood Count 4.42 M/mm3 (4.2-5.4); White Blood Count 11.2 K/mm3 (4.4-11.0)
[2019-11-02 19:45] LABS: Partial Thromboplast Time 30.9 Seconds (24.1-36.2); Prothrombin Time (Protime)PT. 13.4 SECONDS (11.7-14.9)
[2019-11-02 19:54] LABS: AST(SGOT) 14 U/L (15-37); Alanine Aminotransfer ALT/SGPT 16 U/L (13-56); EST Glomerular Filtration Rate 162 mL/min (>60); Est Glom Filt Rate - Afr Amer 196 mL/min (>60); Estimated Creatinine Clearance 132.05 ml/min
--- NOTE | 2019-11-02 20:31 | PCM.PN.BLA ---
Progress Note LABOR PROGRESS NOTE No complaints. Contractions are spacing, but she feels baby coming lower. AVSS, BP GEN - NAD, AAO x 3 SVE 6.5/75/-2, soft FHR 135, moderate variability, + accelerations, no decelerations TOCO 2-3/10 Labs & Testing WBC 11.2 K/mm3 (4.4-11.0) H 11/02/19 19:00 RBC 4.42 M/mm3 (4.2-5.4) 11/02/19 19:00 Hgb 11.4 g/dL (12.0-15.0) L 11/02/19 19:00 Hct 35.0 % (37-47) L 11/02/19 19:00 MCV 79.2 fL (81-99) L 11/02/19 19:00 MCH 25.8 pg (27.0-32.0) L 11/02/19 19:00 MCHC 32.6 g/dL (32-36) 11/02/19 19:00 RDW Std Deviation 37.4 fl (35.1-43.9) 11/02/19 19:00 RDW Coeff of Woody 13.2 % (11.6-14.6) 11/02/19 19:00 Plt Count 252 K/mm3 (150-450) 11/02/19 19:00 MPV 11.1 fl (6.2-12.0) 11/02/19 19:00 Immature Gran % (Auto) 0.500 % (0.0-0.9) 11/02/19 19:00 Neut % (Auto) 77.1 % (47-70) H 11/02/19 19:00 Lymph % (Auto) 15.1 % (19-41) L 11/02/19 19:00 [place] % (Auto) 6.8 % (0-10) 11/02/19 19:00 Eos % (Auto) 0.2 % (0-5) 11/02/19 19:00 Baso % (Auto) 0.3 % (0-1) 11/02/19 19:00 Absolute Neuts (auto) 8.6 X10^3/uL (2.0-7.7) H 11/02/19 19:00 Absolute Lymphs (auto) 1.69 X10^3/uL (0.83-4.51) 11/02/19 19:00 Nucleated RBC % 0 % (0-5) 11/02/19 19:00 PT 13.4 SECONDS (11.7-14.9) 11/02/19 19:00 INR 1.0 11/02/19 19:00 APTT 30.9 Seconds (24.1-36.2) 11/02/19 19:00 Creatinine 0.50 mg/dL (0.55-1.02) L 11/02/19 19: Estim Creat Clear Calc 132.05 ml/min 11/02/19 19:00 Est GFR (MDRD) Af Amer 196 mL/min (>60) 11/02/19 19:00 Est GFR (MDRD) Non-Af 162 mL/min (>60) 11/02/19 19:00 Uric Acid 4.0 mg/dL (2.6-6.0) 11/02/19 19:00 AST 14 U/L (15-37) L 11/02/19 19:00 ALT 16 U/L (13-56) 11/02/19 19:00 Blood Type A POSITIVE 11/02/19 19:00 A/P: 24yo @ 37 1/7wga in active labor, gHTN, Cat I FHR -Amniotomy performed with clear fluid -Maternal and statuses reassuring
[2019-11-02 20:42] LABS: Protein, Urine (Random) 32.2 mg/dL (<11.9); Protein:Creat Ratio 218 mg/g CRE (0-200)
[2019-11-02] MEDS: Oxytocin 30 units/NS 500 ml 30 UNITS/500 ML IV.SOLN IV (23:38)
--- NOTE | 2019-11-03 00:15 | PCM.PN.BLA ---
Progress Note S: Feeling contractions more strongly now, feeling rectal pressure at peak of contractions, not in between; declines IV medication or epidural; spouse bedside and supportive O: AVSS FHTs: 135 baseline, moderate variability, +accels, no decels UCs: Q 3 Pitocin: 2mu Cervix: 7-8/85/-1 per RN at 2021 A: 24 yo at [id number] per 9w5d Active labor Ghtn Group B negative, Apos AROMed at 20:22 for clear fluid by Dr. Vishnu Hernandez Cat 1 FHTs P: Update received from Dr. Brizuela and will now assume care Expectant management Anticipate vaginal delivery
--- NOTE | 2019-11-03 00:50 | PLAC_PTH ---
PATIENT: TATUM DUNNE LOC: [facility] U#:[id number] AGE/SX: 24 ROOM: WP019 RE11/02/[address]: Dr. Qiana Hernandez MD : 1995 BED: 1 DIS: 11/04/2019 SPEC #: [id number] RECD: 11/03/19 07:14 STATUS: KARI SUNIL #: [id number] KEE: 11/03/19 00:[address]: Qiana Tomlin DEPT: SURGICAL PATHOLOGY RECD BY: Alfredo Soares ENTERED: 11/05/19 09:43 SP TYPE: PLACENTA OTHR DR: No Primary Care Phys Tissues: Placenta, NOS Procedures: Surgery Specimen Level V HEADER OPERATION: Vaginal delivery PRE-OP DIAGNOSIS: Gestational hypertension, small appearing placenta TISSUE SUBMITTED: Placenta MICROSCOPIC DIAGNOSIS Cooper placenta (353 g): Umbilical cord - trivascular with no inflammation. Placental Membranes - no pathologic change. Placental Disc - Yo-Dimitris change and mildly increased intraparenchymal fibrin plaque. AM:daniel 11/06/19 MICROSCOPIC DESCRIPTION Slides are reviewed. GROSS DESCRIPTION Received in formalin labeled with patient name and number and not further designated is a placenta including membranes and umbilical cord. The membranes are ferreira-felix and without any lesions. They are ruptured 7 cm from the margin and inserted marginally. The centrally inserted umbilical cord measures 26 cm in length and 2 cm in average diameter. Sections reveal three blood vessels. The body of the placenta weighs 353 gm (post fixation) and measures 17 x 13 x 3 cm. The surface is ferreiar-felix and without any mass lesions. The maternal surface shows red-maroon surfaces with normal cotyledons. Sections do not reveal any mass lesions. Beef Splitter sections are submitted in 6 cassettes as follows: 1 - membrane roll, 2 - umbilical cord maternal end, 3 - umbilical cord end, 4-6 - body of the placenta including maternal and surface. /SJ:sp 11/05/19 TC: 5 CPT: 30415
[2019-11-03] MEDS: Oxytocin 30 units/NS 500 ml 30 UNITS/500 ML IV.SOLN 334 UNITS IV (00:54)
--- NOTE | 2019-11-03 01:14 | PCM.OPRPT ---
Vaginal Delivery Presented to unit yesterday evening c/o contractions Method of Induction: Pitocin - Augmentation of labor after amniotomy, Amniotomy - Augmentation of labor Rupture of Membrane time: 202111/02/2019 Amniotic Fluid Description: Clear Final GIACOMO: 11/22/19 Final GIACOMO Source: US <20 weeks Gestational age: 37 Weeks and 2 Days Date of Procedure: 11/03/19 Pre-Operative Diagnosis: Active labor/Gesational hypertension Post-Operative Diagnosis: Surgery/ Procedure Performed: Spontaneous Vaginal Delivery Type of Anesthesia: None Description of Procedure: CTSP with c/o constant pressure; VE 9/95/0; progressed rapidly to c/c/+1 over the next several contractions, pushed well and delivered a vigorous male over an intact perineum OA to GEMMA; loose nuchal cord x 1, reduced after delivery of shoulders which followed vertex easily; infant placed on mothers abdomen, dried, stimulated; cord remained intact until pulsing cessation, approx 2 min, then clamped x 2 by CNM and cut by FOB under CNM supervision; placenta delivered spontaneously, Mary mechanism, intact, 3-vessel cord, central insertion; appeared small and with dx of ghtn, was sent for pathology; upon inspection perineum was intact without bruising or abrasion; EBL 100ml Raytec and instrument counts correct x 2 with RN Presentation: Vertex, GEMMA Placental Delivery Description: Spontaneous Placenta Disposition: Sent to Pathology Cord Vessel Description: 3 Vessels Cord Entanglement: Around neck x 1, loose Estimated Blood Loss: 100 ml Infant A gender: Male (1 minute): 9 (5 minute): 9 Episiotomy Description: None Laceration: None Medications given after delivery: IV Pitocin
--- NOTE | 2019-11-03 01:29 | DCINST_ITS ---
Discharge Diet: No Restrictions Discharge Activity: Return to Normal Activity, No Restrictions, May Drive, May Shower, May Take a Tub Bath May resume sexual activity in: 6-8 weeks Weight Bearing Status: Weight bearing as tolerated Lifting Restrictions: Nothing heavier than the baby for two weeks Additional Activity Instructions:: Minimize cooking, cleaning, shopping and long car trips for two weeks; try to get at least 8 hours sleep in 24 hours for the first two weeks - sleep when the baby sleeps Call your doctor if your incision/area has: Continuous Slow Oozing, Sudden Increased Bleeding, Increased Pain/ Swelling, Increased Redness, Foul Smelling Discharge Call your doctor if you observe: Fever of 101 or Higher, Inability to urinate, Inability to have a bowel movement, Using more than one pad per hour, Shortness of breath, Dizziness, Fainting spells, Chest pain, Increased palpitations (irregular heartbeat), Calf discomfort, Uncontrolled pain Additional Instructions: If you experience any of the following, contact your healthcare provider. * Bleeding that soaks a pad every hour for 2 hours * Fever 100.4 or higher * Unrelieved incision or abdominal pain * Swelling, redness, discharge or bleeding from your incision or episiotomy site * Your incision begins to separate * Problems urinating (including inability to urinate or burning while urinating). * Visual changes * Severe headache * Flu-like symptoms * Pain or redness in one of both of your breasts * Pain, warmth, tenderness or swelling in your legs, especially the calf area * Frequent nausea and vomiting * Symptoms of depression or anxiety If you experience any of the following, call 911 or go to the nearest Emergency Room. * Chest pain * Problems breathing * Seizure activity * Partial or complete paralysis of a body part, slurred speech, weakness or drooping of the face, or a sudden inability to walk or hold your balance Allergies/Adverse Reactions: Allergies nitrofurantoin [From Macrobid] Allergy (Verified 10/09/19 00:29) Rash Medications to take at Discharge Vits [Prenatabs FA ] 1 tablet PO DAILY 07/19/15 Please Follow Up With: Doreen Clemente CNM When: 1 week for blood pressure check; six weeks for checkup Primary Care Physician: Care Physician,No Primary [Primary Care Provider] - Test Results: Test results from this visit will be discussed in further detail at your follow- up appointment, if applicable. Proposed Discharge Date: 11/05/19
[2019-11-03] MEDS: Ibuprofen 600 MG Tablet PO ×2 (01:59→16:02)
[2019-11-03 03:01] VITALS: BP 147/75; PULSE 86; RESP 16; TEMP 36.8; O2SAT 100
[2019-11-03 10:00] VITALS: BP 132/80; PULSE 97; RESP 16; TEMP 36.9
[2019-11-03 14:00] VITALS: BP 132/80; PULSE 97; RESP 12; TEMP 36.6
[2019-11-03 16:30] VITALS: BP 151/86; PULSE 88; RESP 16; TEMP 36.9
--- NOTE | 2019-11-03 17:02 | PCM.PN.OB ---
Patient Problems: Active and Suspected Problems 37 weeks gestation of (Acute) Subjective: This is a late entry for 11/03/2019 1115 Pain well controlled, tolerating diet, passing flatus; infant well; spouse bedside and supportive Objective: AVSS Breasts filling, nipples atraumatic Fundus firm, midline, u/2, lochia small - Physical Exam Vitals/I&O's: Vital Signs Temp Pulse Resp BP Pulse Ox 98.4 F 97 16 132/80 H 100 11/03/19 10:00 11/03/19 10:00 11/03/19 10:00 11/03/19 10:00 11/03/19 03:01 Oxygen Delivery Method Room Air Weight: 141 lb 12.116 oz Body Mass Index (BMI) 26.7 Intake and Output for Last 24 Hours 11/01/19 11/02/19 11/03/19 23:59 23:59 23:59 Intake Total 1347.43 / 1347.43 Output Total 50 / 50 400 / 400 Balance -50 / -50 947.43 / 947.43 General: Alert, Oriented x3, Cooperative, No apparent distress HEENT: PERRLA, EOMI Oral: Moist Mucosa Neck: Supple Lungs: Clear to auscultation, Normal air movement Cardiovascular: Regular rate, Regular Rhythm Abdomen: Bowel Sounds Present, Soft, Non-Distended, Passing Flatus Extremities: No clubbing, No edema, Capillary Refill Less than 3 Seconds, No Calf Tenderness Skin: No rashes Musculoskeletal: No Tenderness to Palpation of Joints or Extremities Neurological: Cranial nerves II-XII grossly intact, Deep Tendon Reflexes 2+/4 and Symmetrical, Neuro grossly intact Psych/Mental Status: Normal Affect, Appropriate Laboratory Results 11/02/19 19:00: WBC 11.2 H, RBC 4.42, Hgb 11.4 L, Hct 35.0 L, MCV 79.2 L, MCH 25.8 L, MCHC 32.6, RDW Std Deviation 37.4, RDW Coeff of Woody 13.2, Plt Count 252, MPV 11.1, Immature Gran % (Auto) 0.500, Neut % (Auto) 77.1 H, Lymph % (Auto) 15.1 L, [place] % (Auto) 6.8, Eos % (Auto) 0.2, Baso % (Auto) 0.3, Absolute Neuts (auto) 8.6 H, Absolute Lymphs (auto) 1.69, Nucleated RBC % 0 11/02/19 19:00: Blood Type A POSITIVE, Antibody Screen TNP 11/02/19 19:00: PT 13.4, INR 1.0, APTT 30.9 11/02/19 19:00: Creatinine 0.50 L, Estim Creat Clear Calc 132.05, Est GFR (MDRD) Af Amer 196, Est GFR (MDRD) Non-Af 162, Uric Acid 4.0, AST 14 L, ALT 16 11/02/19 19:00: Antibody Screen NEGATIVE 11/02/19 20:00: U Random Total Protein 32.2 H, Urine Creatinine 148.00, Protein/Creatinin Ratio 218 H Current Medications Acetaminophen (Tylenol) 1,000 mg PO Q8H PRN PRN PRN Reason: Pain Score 1-3/10 Bisacodyl (Dulcolax) 10 mg RECTAL UD PRN PRN Reason: If no BM Dibucaine (Dibucaine) 1 applic TOPICAL TID PRN PRN; Protocol PRN Reason: Discomfort Hydrocortisone (Hytone) 1 applic TOPICAL TID PRN PRN; Protocol PRN Reason: Discomfort Ibuprofen (Motrin) 600 mg PO Q6H PRN PRN PRN Reason: Pain Score 1-3/10 Last Admin: 11/03/19 16:02 Dose: 600 mg Documented by: Methylergonovine Maleate (Methergine) 0.2 mg IM X1 PRN PRN Reason: Excess bleeding/uterine atony Senna/Docusate Sodium (Senokot-S, Tiffany-Colace) 1 - 2 tablet PO DAILY PRN PRN PRN Reason: Constipation Simethicone (Mylicon) 80 mg PO PCHS PRN PRN Reason: Indigestion/Stomach pain Medical Necessity - Tobacco Use Smoking Status: Never smoker Assessment/Plan All Active Problems labor (Acute) rule out labor (Acute) 37 weeks gestation of (Acute) Assessment: 24 yo G3now P1103 delivered via at 37w1d gestation per 9w5d US DOD, normal involution, normal course Plan: Discharge teaching started Continue routine care DC home tomorrow if remains stable
--- NOTE | 2019-11-03 18:44 | NURSING ---
1400 Up to the bathroom. 2 clots approximate size of an egg noted. Lochia small to mod amount. FF U/3. Resting in bed.
--- NOTE | 2019-11-03 18:46 | NURSING ---
1600 c/o feeling light headed and hot. Skin pink, warm and dry. BP 151/86, P 88. FF u/2, lochia small amount. States she is tired. Encouraged to take a nap. Resting in bed. 1730 Up to the bathroom with assistance, sarah well. Lochia sm/mod. No clots noted. States she feels better after napping.
[2019-11-03 20:00] VITALS: BP 151/92; PULSE 77; RESP 18; TEMP 37.2
[2019-11-03] MEDS: Acetaminophen 500 MG Tablet 1000 MG PO (21:12)
[2019-11-04 03:00] VITALS: BP 128/74; PULSE 76; RESP 16; TEMP 36.7
[2019-11-04] MEDS: Ibuprofen 600 MG Tablet PO (05:38)
[2019-11-04 05:56] LABS: Hematocrit 32.1 % (37-47); Hemoglobin 10.4 g/dL (12.0-15.0); Mean Corp Hgb Conc 32.4 g/dL (32-36); Mean Corpuscular Hgb 25.9 pg (27.0-32.0); Mean Platelet Vol. 10.7 fl (6.2-12.0); Platelet Count 213 K/mm3 (150-450); RBC Distribution Width CV 13.2 % (11.6-14.6); RBC Distribution Width SD 37.5 fl (35.1-43.9); Red Blood Count 4.01 M/mm3 (4.2-5.4); White Blood Count 10.4 K/mm3 (4.4-11.0)
--- NOTE | 2019-11-04 09:43 | DS.PCM_ITS ---
Discharge Date and Diagnosis - Problem List Patient Problems: Active and Suspected Problems 37 weeks gestation of (Acute) Date of Admission: 11/02/19 Date of Discharge: 11/04/19 - Primary Discharge Diagnosis Active and Suspected Problems 37 weeks gestation of (Acute)/ SP/ Hospital Course and Treatment Operations: None Procedures: None Summary of Care Provided: The patient is a 24 year old F [now S/P ] Patient Problems: Active and Suspected Problems 37 weeks gestation of (Acute) Subjective: Feeling well, denies pain. States passed two clots yesterday, but bleeding okay. is going well. Wants to go home. Objective: Vital signs stable. BP remains slightly elevated at times 140s/80s. Fundus firm u/2 midline. - Physical Exam Vitals/I&O's: Vital Signs Temp Pulse Resp BP Pulse Ox 98.0 F 76 16 128/74 H 100 11/04/19 03:00 11/04/19 03:00 11/04/19 03:00 11/04/19 03:00 11/03/19 03:01 Oxygen Delivery Method Room Air Weight: 64.3 kg Body Mass Index (BMI) 26.7 Intake and Output for Last 24 Hours 11/02/19 11/03/19 11/04/19 23:59 23:59 23:59 Intake Total 1347.43 / 1347.43 Output Total 50 / 50 400 / 400 Balance -50 / -50 947.43 / 947.43 General: Alert, Oriented x3, Cooperative HEENT: Atraumatic, PERRLA, EOMI, Normocephalic Neck: Supple, No JVD, Negative Carotid Bruits Lungs: Clear to auscultation, Normal air movement Cardiovascular: Regular rate, No murmurs Abdomen: Bowel Sounds Present, Soft, Non Tender, Passing Flatus, - - fundus u/2 Extremities: No edema, Capillary Refill Less than 3 Seconds Skin: No rashes, No breakdown Musculoskeletal: No Tenderness to Palpation of Joints or Extremities Neurological: Cranial nerves II-XII grossly intact Psych/Mental Status: Normal Affect, Appropriate Laboratory Results 11/04/19 05:45: WBC 10.4, RBC 4.01 L, Hgb 10.4 L, Hct 32.1 L, MCV 80.0 L, MCH 25.9 L, MCHC 32.4, RDW Std Deviation 37.5, RDW Coeff of Woody 13.2, Plt Count 213, MPV 10.7 Current Medications Acetaminophen (Tylenol) 1,000 mg PO Q8H PRN PRN PRN Reason: Pain Score 1-3/10 Last Admin: 11/03/19 21:12 Dose: 1,000 mg Documented by: Bisacodyl (Dulcolax) 10 mg RECTAL UD PRN PRN Reason: If no BM Dibucaine (Dibucaine) 1 applic TOPICAL TID PRN PRN; Protocol PRN Reason: Discomfort Hydrocortisone (Hytone) 1 applic TOPICAL TID PRN PRN; Protocol PRN Reason: Discomfort Ibuprofen (Motrin) 600 mg PO Q6H PRN PRN PRN Reason: Pain Score 1-3 Last Admin: 11/04/19 05:38 Dose: 600 mg Documented by: Methylergonovine Maleate (Methergine) 0.2 mg IM X1 PRN PRN Reason: Excess bleeding/uterine atony Ondansetron HCl (Zofran) 4 mg IV Q4H PRN PRN PRN Reason: Nausea Senna/Docusate Sodium (Senokot-S, Tiffany-Colace) 1 - 2 tablet PO DAILY PRN PRN PRN Reason: Constipation Simethicone (Mylicon) 80 mg PO PCHS PRN PRN Reason: Indigestion/Stomach pain Sodium Chloride () 5 - 15 ml IV UD PRN PRN Reason: SALINE FLUSH Discharge Diet: No Restrictions Discharge Activity: Return to Normal Activity, No Restrictions, May Drive, May Shower, May Take a Tub Bath May resume sexual activity in: 6-8 weeks Weight Bearing Status: Weight bearing as tolerated Additional Activity Instructions:: Minimize cooking, cleaning, shopping and long car trips for two weeks; try to get at least 8 hours sleep in 24 hours for the first two weeks - sleep when the baby sleeps Call your doctor if you observe: Fever of 101 or Higher, Inability to urinate, Inability to have a bowel movement, Using more than one pad per hour, Shortness of breath, Dizziness, Fainting spells, Chest pain, Increased palpitations (irreg ular heartbeat), Calf discomfort, Uncontrolled pain Home Medications: Medications to take at Discharge Vits [Prenatabs FA ] 1 tablet PO DAILY 07/19/15 Progesterone 250 mg IM QWEEK 10/09/19 Primary Care Physician: Care Physician,No Primary [Primary Care Provider] - Please Follow Up With: Qiana Nicholas MD When: 1 week for BP check, then 6 weeks for PP visit Disposition: Home Minutes spent on discharge:: 15 Patient Condition:: Good Medical Necessity - Tobacco Use Smoking Status: Never smoker Meaningful Use Info Meaningful Use Diagnoses (Choose all that apply): None applicable
[2019-11-04 09:46] VITALS: BP 139/94; PULSE 92; RESP 17; TEMP 36.9
[2019-11-04 10:00] VITALS: BP 142/88; PULSE 85; RESP 16; TEMP 37
[2019-11-05 04:29] LABS: Pathology Specimen OB SEE PATHOLOGY REPORT
== END 2019-11-04 15:05 | disposition home or self-care (01) | DRG 807 ==
PROVIDERS: Advanced Practice Midwife; Admitting Provider Obstetrics & Gynecology; Referring Provider Obstetrics & Gynecology; Visit Provider Obstetrics & Gynecology
DX: O16.4 Unspecified maternal hypertension, complicating childbirth (principal); Z37.0 Single live birth; O60.14X0 Preterm labor third trimester with preterm delivery third trimester, not applicable or unspecified; O69.81X0 Labor and delivery complicated by cord around neck, without compression, not applicable or unspecified; Z3A.37 37 weeks gestation of pregnancy
CPT/HCPCS: 59025; 59050; 82565; 82570; 84156; 84450; 84460; 84550; 85025; 85027; 85610; 85730; 86850; 86900; 86901; 88307; 99218; J7120; G0378

== ENCOUNTER → 2020-07-07 17:43 | Outpatient (CLI) | payer BC, SELFPAY | PROVIDERS: PCP Student in an Organized Health Care Education/Training Program; Referring Provider Internal Medicine Gastroenterology; Visit Provider Internal Medicine Gastroenterology | DX: Z11.59 Encounter for screening for other viral diseases (principal) | CPT/HCPCS: 87635; 94799; U0003 ==

== ENCOUNTER → 2020-09-25 11:41 | Outpatient (CLI) | payer BC, SELFPAY ==
[2020-09-25 14:26] LABS: hCG Titer Quant., Serum < 1 mIU/mL (1-3)
[2020-09-25 14:56] LABS: Thyroid Stim Hormone (TSH) 1.12 uIU/mL (0.358-3.74)
== END ==
PROVIDERS: PCP Student in an Organized Health Care Education/Training Program; Visit Provider Obstetrics & Gynecology
DX: N93.9 Abnormal uterine and vaginal bleeding, unspecified (principal)
CPT/HCPCS: 36415; 84146; 84439; 84443; 84702

== ENCOUNTER → 2021-10-14 15:40 | Outpatient (CLI) | payer BC, SELFPAY ==
[2021-10-14 17:27] LABS: Progesterone Level 3.44 ng/mL (See Comment)
== END ==
PROVIDERS: PCP Student in an Organized Health Care Education/Training Program; Visit Provider Obstetrics & Gynecology
DX: N91.5 Oligomenorrhea, unspecified (principal)
CPT/HCPCS: 36415; 84144

== ENCOUNTER → 2021-10-27 07:26 | Outpatient (CLI) | payer BC, SELFPAY ==
[2021-10-27 08:28] LABS: T3 Total - Triiodothyronine 1.43 ng/mL (0.6-1.81)
[2021-10-27 09:07] LABS: Estradiol 51.4 pg/mL; Follicle Stimulating Hormone 4.3 mIU/mL; Prolactin 11.4 ng/mL; T4 Free Direct 1.18 ng/dL (0.76-1.46); Thyroid Stim Hormone (TSH) 1.73 uIU/mL (0.358-3.74)
[2021-10-28 12:08] LABS: Sex Hormone-binding Globulin 81.3 nmol/L (24.6-122.0)
[2021-11-02 08:59] LABS: 17-Hydroxyprogesterone 57 ng/dL (.)
== END ==
LOC: LAB 07:28
PROVIDERS: PCP Student in an Organized Health Care Education/Training Program; Referring Provider Obstetrics & Gynecology; Visit Provider Obstetrics & Gynecology
DX: N92.5 Other specified irregular menstruation (principal); N92.6 Irregular menstruation, unspecified; N97.0 Female infertility associated with anovulation
CPT/HCPCS: 36415; 82533; 82627; 82670; 83001; 83498; 84146; 84270; 84403; 84439; 84443; 84480; 82626

== ENCOUNTER 2021-12-11 09:42 | Outpatient (CLI) | payer BC, SELFPAY ==
[2021-12-11 10:56] LABS: Glucose 75GTT - Fasting 105 mg/dL (70-99)
[2021-12-11 11:07] LABS: Insulin 75GTT - Fasting 6.9 mU/L (2.6-37.6)
[2021-12-11 11:09] LABS: Vitamin D,25 Hydroxy 27.8 ng/mL
[2021-12-11 11:38] LABS: Glucose 75GTT - 60 minutes 80 mg/dL (100-160)
[2021-12-11 11:40] LABS: Glucose 75GTT - 30 minutes 120 mg/dL (100-160)
[2021-12-11 11:46] LABS: Insulin 75GTT - 30 MIN 48.4 mU/L (Not Estab.)
[2021-12-11 11:47] LABS: Insulin 75GTT - 60 min 28.4 mU/L (Not Estab)
[2021-12-11 12:39] LABS: Glucose 75GTT - 120 minutes 100 mg/dL (70-140)
[2021-12-11 12:46] LABS: Insulin 75GTT - 120 min 45.3 mU/L (Not Estab.)
== END 2021-12-11 23:59 | disposition short-term general hospital (02) ==
PROVIDERS: PCP Student in an Organized Health Care Education/Training Program; Visit Provider Obstetrics & Gynecology
DX: N93.9 Abnormal uterine and vaginal bleeding, unspecified (principal)
CPT/HCPCS: 36415; 82306; 82951; 82952; 83525

== ENCOUNTER → 2022-03-19 | Outpatient (CLI) | payer BC, SELFPAY ==
[2022-03-22 22:06] LABS: Chlamydia By Nucleic Acid AMP Negative (Negative)
[2022-03-22 22:10] LABS: Gonococcus By Nucleic Acid AMP Negative (Negative)
[2022-03-26 18:08] LABS: HPV Reflexed? NOT INDICATED
== END | disposition home or self-care (01) ==
LOC: LABSPEC 13:54
PROVIDERS: PCP Student in an Organized Health Care Education/Training Program; Visit Provider Obstetrics & Gynecology
DX: Z12.4 Encounter for screening for malignant neoplasm of cervix (principal); Z11.3 Encounter for screening for infections with a predominantly sexual mode of transmission
CPT/HCPCS: 87491; 87591; 88175; G0145

== ENCOUNTER 2024-10-07 18:03 | Emergency (ER) | payer BC, SELFPAY ==
[2024-10-07 18:05] VITALS: BP 146/107; PULSE 130; RESP 18; TEMP 37.6; O2SAT 96; BMI 24.2
[2024-10-07 18:08] VITALS: BP 146/107; PULSE 130; RESP 18; TEMP 37.6; O2SAT 96
[2024-10-07 18:43] VITALS: O2SAT 97
[2024-10-07] MEDS: Ipratropium/Albuterol Sulfate 3 ML AMPUL.NEB INHALATION (18:48)
[2024-10-07 18:50] VITALS: PULSE 125; RESP 18
[2024-10-07 19:00] LABS: Absolute Neutrophil Count 4.2 X10^3/uL (2.0-7.7); Basophil# 0.01 X10^3/uL; Basophil% 0.2 % (0-1); Hemoglobin 13.7 g/dL (12.0-15.0); Lymphocyte % 12.7 % (19-41); Mean Corp Hgb Conc 33.4 g/dL (32-36); Mean Corpuscular Hgb 26.4 pg (27.0-32.0); Mean Platelet Vol. 10.2 fl (6.2-12.0); Monocyte# 0.53 X10^3/uL; Monocyte% 9.6 % (0-10); NRBC Flagged by Analyzer 0 % (0-5); Neutrophil # 4.24 X10^3/uL (2.7-7.7); Neutrophil % 77.1 % (47-70); Platelet Count 242 K/mm3 (150-450); RBC Distribution Width CV 13.2 % (11.6-14.6); RBC Distribution Width SD 37.4 fl (35.1-43.9); Red Blood Count 5.19 M/mm3 (4.2-5.4); White Blood Count 5.5 K/mm3 (4.4-11.0)
[2024-10-07] MEDS: 0.9% Normal Saline (1000mL) 1,000 ML 1000 ML IV (19:08)
[2024-10-07 19:10] LABS: Internal QC Validated? YES +Cl - CLEAR BKGD; Pregnancy, Serum, hCG Quali. NEGATIVE Negative; Record Kit Lot#, Serum Preg. 869294
[2024-10-07 19:14] LABS: Anion Gap 6 (5-15); BUN 11 mg/dL (7-18); BUN/Creat Ratio 17.8 RATIO (10-20); Calcium,Total 9.3 mg/dL (8.5-10.1); Chloride 107 mmol/L (98-107); Creatinine, Serum 0.62 mg/dL (0.55-1.02); EST Glomerular Filtration Rate 122 mL/min (>60); Est Glom Filt Rate - Afr Amer 147 mL/min (>60); Estimated Creatinine Clearance 110.77 ml/min; Glucose 111 mg/dL (74-106); Potassium 3.8 mmol/L (3.5-5.1); Sodium Level 138 mmol/L (136-145)
[2024-10-07 19:37] VITALS: BP 146/95; PULSE 110; RESP 18; O2SAT 96
[2024-10-07] MEDS: Azithromycin 250 MG Tablet 500 MG PO (20:16)
== END 2024-10-07 20:34 | disposition home or self-care (01) ==
PROVIDERS: Emergency Provider Emergency Medicine; PCP Student in an Organized Health Care Education/Training Program; Referring Provider Emergency Medicine; Visit Provider Emergency Medicine
DX: J18.9 Pneumonia, unspecified organism (principal); R00.0 Tachycardia, unspecified
CPT/HCPCS: 96360; 71046; 80048; 84703; 85025; 87631; 94640; 99284; J7030; A4216

== ENCOUNTER → 2025-08-12 | Outpatient (CLI) | payer BC, SELFPAY ==
[2025-08-12 17:47] LABS: Creatinine, Urine (random) 265.00 mg/dL (28.00-217.00); Protein, Urine (Random) 17.6 mg/dL (0.0-12.0); Protein:Creat Ratio 66 mg/g CRE (0-200)
[2025-08-14 21:07] LABS: Chlamydia By Nucleic Acid AMP Negative (Negative); Gonococcus By Nucleic Acid AMP Negative (Negative)
== END | disposition home or self-care (01) ==
LOC: LABSPEC 12:40
PROVIDERS: PCP Student in an Organized Health Care Education/Training Program; Referring Provider Obstetrics & Gynecology; Visit Provider Obstetrics & Gynecology
DX: O09.90 Supervision of high risk pregnancy, unspecified, unspecified trimester (principal); Z3A.00 Weeks of gestation of pregnancy not specified; Z87.59 Personal history of other complications of pregnancy, childbirth and the puerperium
CPT/HCPCS: 82570; 84156; 87086; 87088; 87491; 87591

== ENCOUNTER → 2025-09-18 | Outpatient (CLI) | payer BC, SELFPAY ==
[2025-09-18 12:19] LABS: Hematocrit 40.4 % (37-47); Hemoglobin 13.6 g/dL (12.0-15.0); Immature Granulocytes Count 0.030 X10^3/uL (0.0-0.0); Mean Corp Hgb Conc 33.7 g/dL (32-36); Mean Corpuscular Volume 81.5 fL (81-99); Mean Platelet Vol. 10.8 fl (6.2-12.0); NRBC Flagged by Analyzer 0 % (0-5); Platelet Count 259 K/mm3 (150-450); RBC Distribution Width CV 12.4 % (11.6-14.6); RBC Distribution Width SD 37.1 fl (35.1-43.9); Red Blood Count 4.96 M/mm3 (4.2-5.4); White Blood Count 8.1 K/mm3 (4.4-11.0)
[2025-09-18 13:12] LABS: Creatinine, Urine (random) 183.00 mg/dL (28.00-217.00); Protein, Urine (Random) 20.0 mg/dL (0.0-12.0); Protein:Creat Ratio 109 mg/g CRE (0-200)
[2025-09-18 13:17] LABS: AST(SGOT) 17 U/L (<=31); Alanine Aminotransfer ALT/SGPT 10 U/L (<=34); Albumin, Serum 4.4 g/dL (3.5-5.0); Alkaline Phosphatase 48 U/L (35-104); Anion Gap 14 (5-15); BUN 7 mg/dL (4-19); BUN/Creat Ratio 14.6 RATIO (10-20); Calcium,Total 9.4 mg/dL (7.6-11.0); Carbon Dioxide 19.3 mmol/L (21.0-32.0); Chloride 103 mmol/L (98-108); Globulin 2.6 g/dL (2.2-4.2); Glucose 98 mg/dL (70-99); HIV Nonreactive (Nonreactive); Hepatitis B Surface Antigen Nonreactive (Nonreactive); Hepatitis C Antibody Nonreactive (Nonreactive); Potassium 3.3 mmol/L (3.3-5.1); Syphilis Antibodies Nonreactive (Nonreactive)
== END | disposition home or self-care (01) ==
LOC: BWCLAB 11:14
PROVIDERS: Obstetrics & Gynecology; PCP Student in an Organized Health Care Education/Training Program; Visit Provider Obstetrics & Gynecology
DX: O10.919 Unspecified pre-existing hypertension complicating pregnancy, unspecified trimester (principal); O09.90 Supervision of high risk pregnancy, unspecified, unspecified trimester; Z3A.00 Weeks of gestation of pregnancy not specified
CPT/HCPCS: 36415; 80053; 82570; 84156; 85025; 86703; 86762; 86780; 86803; 86850; 86900; 86901; 87340